=== PATIENT | male | born 2000 | race Caucasian/White ===

== ENCOUNTER 2021-05-03 10:27 | Inpatient (IN) | payer OTHER, SELFPAY ==
[2021-05-03 10:30] VITALS: BMI 21.4
[2021-05-03 10:31] VITALS: BP 144/81; PULSE 64; RESP 16; TEMP 36.7; O2SAT 97
--- NOTE | 2021-05-03 11:00 | PC.NURSE ---
21 y.o male from [facility] in [place] presents with thoughts of SI, and auditory hallucinations that he describes as present all the time. Patient has a plan to hang himself, slit his wrists or get a gun, and states that the voices are repeatedly telling him to kill himself. States that he has some visual hallucinations of a figure standing near him or flashing lights. Patient states that he is taking Lexapro and Prograf. Has a history of liver transplant. Positive for Marijuana. Has large scar to abdomen from liver transplant.
--- NOTE | 2021-05-03 13:01 | PM.NHP ---
Providers/Chief Complaint Admitting Physician: Robles Cuadra MD Chief Complaint: SI/AVH HPI NPU History of Present Illness Orestes Russell is a 21 year old male who has had depression and suicidal ideation for a number of years who presented to the [facility] ED in [place], [place] with complaints of worsening suicidal ideation and a plan of slitting his wrist in the bathtub. He was medically cleared prior to transfer. The [facility] ED note states: Patient presents to ER with SI and AV hallucinations. At time of assessment, patient is calm, oriented, and cooperative. Patient reports current SI, and cites plan to slit his wrists in the bathtub and OD on his medications. Patient states he has auditory hallucinations, and describes them as muffled talking and dogs barking/cats meowing. He denies current auditory hallucinations, but does states he has a history of command hallucinations. Patient cites his major stressors are finances, his job which he states he has a hard time focusing at and cries all day. Patient state he is out only been able to sleep about 3 hours per night. Patient reports having visual hallucinations, and states that he sees people for a few seconds and sees flashing lights. He denies that appear to be responding to any stimuli at this time. UDS was positive for cannabinoids on 05/02/2021. BAL 0.00 on 05/02/2021. Patient is unable to contract for safety at this time. Labs from [facility] on 05/02/2021 showed CBC, CMP and UA all essentially normal. Acetaminophen and salicylate were negative. Urine drug screen is positive for cannabinoids. Covid test was reported to be negative. Two affidavits from [facility] were reviewed as well. The patient says he has been real depressed, since the seventh grade. He has had suicidal ideation for a long time too. He says, my life is collapsing around me. He describes being kicked out of his living situation by a roommate, and his dad constantly needling him to get a real job. Depression and suicidal ideas have been worse over the last week, after having the thought, I should slit my wrists. He had a specific plan to feel his bathtub, take pain pills, and then cut his wrists. He says he has had insomnia, sleeping 3 to 4 hours at night. On the other hand he sleeps often in the daytime. Appetite is okay and energy level is decreased. Motivation is poor. He has been down on himself, but is more hopeful being in the hospital, because maybe things will change. He does say he has auditory hallucinations, which used to be clearly understandable, but now are mumbling. He also sees people standing in a corner, although when he looks they are gone. He denies current command hallucinations, although he has had these in the past. The patient also describes disassociating, disconnecting from himself, and everything looks blurry or foggy. He says for example, that he will not remember this conversation, because he is disconnected right now. He says his boyfriend was the one the pointed out that he is dissociating, and this made sense to him. He feels he has been dissociating since his sophomore year in high school. The collateral information says that the patient has a history of self cutting, but has not done so recently. The patient says he uses alcohol rarely. He smokes marijuana about once every 2 weeks, and smokes cigarettes 1/2 pack/day or more. He has never been in drug rehab or gotten a DUI. This is the patient's first psychiatric hospitalization. He was referred to [facility], and just started on Lexapro 4 days ago. He is waiting to be assigned a therapist. Psychiatric history: As above. Substance use history: As above. Family history: Patient says his father and 2 maternal uncles have all attempted suicide. There are autoimmune diseases that run in his family. Psychosocial history: The patient says he grew up in [place], [place], and graduated from high school in [place], [place]. His parents when he was 10, and he has split his time between his dad's house in [place] and his mother's house in [place]. He works at [employer]. He has a boyfriend he has been dating for 11 months. Legal history: No legal difficulties. 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 He says he is doing well with that. He had his first dose of the [email or web address] Covid vaccine about 2-1/2 weeks ago. He is scheduled to have the second dose next Thursday. Review of Systems General: Reports: 10 or more systems reviewed and unremarkable except in HPI and below Meds NPU Home Medications Medication Instructions Recorded Confirmed Last Taken Type escitalopram oxalate [Lexapro] 10 mg PO DAILY 05/03/21 05/03/21 Unknown History tacrolimus [Prograf] 1.5 mg PO BID 05/03/21 05/03/21 Unknown History Allergies Allergy/AdvReac Type Severity Reaction Status Date / Time No Known Allergies Allergy Verified 05/03/21 10:58 Mental Status Exam MSE Comments: I met with the patient in his room, and he was appropriately groomed and dressed, wearing hospital scrubs. He was calm, cooperative, interactive, and made fair eye contact. Mild psychomotor agitation.. Speech is at a regular rate and rhythm, normal volume, good articulation, not pressured. Alert, oriented to person, place, time, situation. Attention and concentration were intact. Able to spell the word WORLD correctly forwards and backwards. Memory is intact. Remembers 3/3 words immediately and 3/3 at 3 minutes. He knows the names of the past 3 presidents. Mood is depressed and anxious. Affect is pleasant and anxious. Thought process is logical and goal-directed. Thought content: Auditory and visual hallucinations as described above. No delusions noted. No current suicidal ideation here in the hospital, no homicidal ideation. Insight and judgment appear to be fair. Vitals/I&O/Wt Last Vital Signs Temp 98.0 F 05/03/21 10:31 Pulse 64 05/03/21 10:31 Resp 16 05/03/21 10:31 BP 144/81 05/03/21 10:31 Pulse Ox 97 05/03/21 10:31 Weight last 48 hrs Weight 65.771 kg A&P Assessment and plan (1) Major depressive disorder, recurrent, severe with psychotic features: Status: Acute (2) Anxiety disorder, unspecified: Status: Acute Additional A&P Information Orestes Russell is a 21 year old male who has had depression and suicidal ideation for a number of years who presented to the [facility] ED in [place], [place] with complaints of worsening suicidal ideation and a plan of slitting his wrist in the bathtub. He also has issues with dissociation. 1. Continue current medication. He has just started on Lexapro in the past few days. It has not had time to produce an effect yet. We will continue to assess medication status and whether to augment the Lexapro. 2. Continue every 15 minute checks for safety. 3. Encourage individual, group and milieu therapies. 4. Encourage sober living treatment after discharge at the highest level of care to which he is willing to commit. Involuntary Hold Information 96 Hour Hold: 96 Hour Involuntary Admission: No Attestations NPU Medical Necessity Statement*: Psychiatric hospitalization is medically necessary to prevent access to lethal means, to reevaluate medication, and to coordinate a safe discharge. Patient will be in the hospital for over 2 midnights. Likely length of stay is 3 to 5 days. Coding Level of Care Code Acute Firefighter for Jackie Marcial Diagnoses Major depressive disorder, recurrent, severe with psychotic features F33.3 Anxiety disorder, unspecified F41.9
[2021-05-03] MEDS: nicotine 2 mg Gum BUCCAL ×2 (13:27→20:22)
[2021-05-03] MEDS: escitalopram 10 mg Tablet PO (13:27)
[2021-05-03 14:00] VITALS: BP 144/81; PULSE 64; RESP 16; TEMP 36.7; O2SAT 97
[2021-05-03] MEDS: TACROLIMUS 1 MG CAP 2 EACH PO (17:46)
[2021-05-03 20:08] VITALS: BP 128/87; PULSE 68; RESP 18; TEMP 37.5; O2SAT 97
[2021-05-03] MEDS: trazodone 50 mg Tablet PO (21:34)
[2021-05-03] MEDS: hyDROXYzine 25 mg Capsule 50 MG PO (21:34)
--- NOTE | 2021-05-03 21:40 | PC.NURSE ---
Patient requested Trazodone 50 mg for sleep and Vistaril 50mg for anxiety. Both given
[2021-05-04 06:00] VITALS: BP 125/73; PULSE 84; RESP 15; TEMP 36.5; O2SAT 97
[2021-05-04] MEDS: TACROLIMUS 1 MG CAP 2 EACH PO ×2 (06:16→16:34)
[2021-05-04] MEDS: ESCITALOPRAM 10MG 1 EACH PO (08:21)
[2021-05-04 14:00] VITALS: BP 161/80; PULSE 95; RESP 20; TEMP 36.1; O2SAT 96
[2021-05-04] MEDS: nicotine 2 mg Gum BUCCAL ×2 (14:21→16:03)
--- NOTE | 2021-05-04 14:23 | PC.NURSE ---
Patient at nurses station requesting nicotine gum. PRN nicotine gum administered.
--- NOTE | 2021-05-04 15:03 | P.PN_ITS ---
Subjective NPU Subjective: Interval history: The patient reports doing somewhat better today. He describes that his anxiety is reduced because he does not have the same stressors he has at home. For example, he has intense anxiety at work because of his interaction with the public, and he has no expectation of performance here. Therefore his suicidal ideation has decreased. His auditory hallucinations have diminished, and he slept much better last night. I encouraged him to take and as needed hydroxyzine if his anxiety flares up. That would give him some sense of its ability to control anxiety, and he could then use hydroxyzine for anxiety at home. He denies any side effects on the Lexapro, except for 5 or 10 minutes of stomach pain, which did not actually happen today. I talked with him about adding Abilify 2 mg daily for 3 reasons. It can augment the antidepressant effects of Lexapro. It can address the hallucinations which are a part of his depression. And it may decrease emotional intensity, allowing him to stay present and not dissociate. He says he does not mind dissociation, and prefers it to being in touch with painful realities. He did receive the materials I provided him on dissociation and grounding, and has practiced some grounding a little bit since then. Mental Status Exam MSE Comments: I met with the patient in the day room, and he was appropriately groomed and dressed, wearing hospital scrubs. He was calm, cooperative, interactive, and made fair eye contact. Mild psychomotor agitation. Speech is at a regular rate and rhythm, normal volume, good articulation, not pressured. Alert, oriented to person, place, time, situation. Attention and concentration were intact to exam. Memory is adequate for the interview. Mood is improved. Affect is pleasant and less anxious than yesterday. Thought process is logical and goal-directed. Thought content: Auditory and visual hallucinations are improved. No delusions noted. No current suicidal ideation here in the hospital, no homicidal ideation. Insight and judgment appear to be fair. Vitals/I&O/Wt Last Vital Signs Temp 97.7 F 05/04/21 06:00 Pulse 84 05/04/21 06:00 Resp 15 05/04/21 06:00 BP 125/73 05/04/21 06:00 Pulse Ox 97 05/04/21 06:00 Weight last 48 hrs Weight 65.771 kg A&P Assessment and plan (1) Anxiety disorder, unspecified: Status: Acute (2) Major depressive disorder, recurrent, severe with psychotic features: Status: Acute Additional A&P Information Orestes Russell is a 21 year old male who has had depression and suicidal ideation for a number of years who presented to the [facility] ED in [place], [place] with complaints of worsening suicidal ideation and a plan of slitting his wrist in the bathtub. He also has issues with dissociation. 1. Continue current medication. Add Abilify 2 mg daily to augment Lexapro's antidepressant effect, address hallucinations, and decrease intensity of emotions, thus allowing him to stay present more often and dissociate less. 2. Continue every 15 minute checks for safety. 3. Encourage individual, group and milieu therapies. 4. Encourage sober living treatment after discharge at the highest level of care to which he is willing to commit. Involuntary Hold Information 96 Hour Hold: 96 Hour Involuntary Admission: No Attestations NPU Medical Necessity Statement*: Psychiatric hospitalization is medically necessary to prevent access to lethal means, to reevaluate medication, and to coordinate a safe discharge. Likely length of stay is 2 to 4 days. Coding Level of Care Code Acute Senior Private Client Advisor for Jackie Marcial Diagnoses Anxiety disorder, unspecified F41.9 Major depressive disorder, recurrent, severe with psychotic features F33.3
[2021-05-04] MEDS: ARIPiprazole 2 mg Tablet PO (15:15)
--- NOTE | 2021-05-04 16:03 | PC.NURSE ---
Patient at nurses station requesting nicotine gum. Medication administered.
[2021-05-04] MEDS: hyDROXYzine 25 mg Capsule 50 MG PO ×2 (16:34→21:42)
[2021-05-04 20:28] VITALS: BP 139/75; PULSE 82; RESP 18; TEMP 36.8; O2SAT 97
[2021-05-04] MEDS: trazodone 50 mg Tablet PO (21:42)
--- NOTE | 2021-05-04 21:50 | PC.NURSE ---
Patient requested sleep and anxiety meds. Trazodone 50mg PO, Visteril 50mg PO given.
[2021-05-05 06:00] VITALS: BP 120/72; PULSE 86; RESP 17; TEMP 36.8; O2SAT 97
[2021-05-05] MEDS: TACROLIMUS 1 MG CAP 2 EACH PO ×2 (06:44→17:31)
[2021-05-05] MEDS: ARIPiprazole 2 mg Tablet PO (08:35)
[2021-05-05] MEDS: ESCITALOPRAM 10MG 1 EACH PO (08:36)
[2021-05-05] MEDS: nicotine 21 mg Patch 1 PATCH TRANSDERMA (08:36)
[2021-05-05] MEDS: hyDROXYzine 25 mg Capsule 50 MG PO (10:58)
--- NOTE | 2021-05-05 11:02 | PC.NURSE ---
PRN ANXIETY Patient requested medication for anxiety. Given prn Visteral 50 mg po.
[2021-05-05 14:00] VITALS: BP 128/76; PULSE 88; RESP 18; TEMP 36.3; O2SAT 95
--- NOTE | 2021-05-05 14:43 | P.PN_ITS ---
Subjective NPU Subjective: Interval history: The patient says that textures and noises have been causing him to have panicked feelings. He did take hydroxyzine, which he says helped and did not make him sleepy. He has had thoughts of hanging himself over and over, but he says he is numb to it now. He says that being on the unit and having fewer responsibilities has helped him to feel less depressed or hopeless. He has been doing push-ups, sit ups, and walking the halls, and says that the exercises help. He says that his auditory and visual hallucinations have resolved today. He says he has been trying grounding exercises and they helped to clear his head for about 10 minutes, which he has appreciated. The patient says he has had some headache and when anxious, palpitations. He started taking the Abilify yesterday afternoon and had his second dose this morning. He notes no benefit yet. He denies medication side effects. The patient and I talked about his future. He says he would still like to explore disability, because he sees no way that he would be able to work. We talked about his diagnoses, including major depression, social anxiety, and dissociation. Mental Status Exam MSE Comments: I met with the patient in the day room. He was calm, cooperative, interactive, and made fair eye contact. He is somewhat quirky in his mannerisms. Mild psychomotor agitation. Speech is at a regular rate and rhythm, normal volume, good articulation, not pressured. Alert, oriented to person, place, time, situation. Attention and concentration were intact to exam. Memory is adequate for the interview. Mood is improved. Affect is pleasant and somewhat anxious. Thought process is logical and goal-directed. Thought content: Auditory and visual hallucinations are improved, and have not been present since last evening. No delusions noted. He says he has intrusive thoughts of killing himself. He has no homicidal ideation. Insight and judgment appear to be fair. Vitals/I&O/Wt Last Vital Signs Temp 98.2 F 05/05/21 06:00 Pulse 86 05/05/21 06:00 Resp 17 05/05/21 06:00 BP 120/72 05/05/21 06:00 Pulse Ox 97 05/05/21 06:00 Weight last 48 hrs Weight 65.771 kg Weight 65.771 kg A&P Assessment and plan (1) Major depressive disorder, recurrent, severe with psychotic features: Status: Acute (2) Social anxiety disorder: Status: Acute (3) Dissociative disorder or reaction, unspecified: Status: Acute Additional A&P Information Orestes Russell is a 21 year old male who has had depression and suicidal ideation for a number of years who presented to the [facility] ED in [place], [place] with complaints of worsening suicidal ideation and a plan of slitting his wrist in the bathtub. He also has issues with dissociation. 1. Continue current medication. Yesterday we added Abilify 2 mg daily to augment Lexapro's antidepressant effect, address hallucinations, and decrease intensity of emotions, thus allowing him to stay present more often and dissociate less. 2. Continue every 15 minute checks for safety. 3. Encourage individual, group and milieu therapies. 4. Encourage sober living treatment after discharge at the highest level of care to which he is willing to commit. Involuntary Hold Information 96 Hour Hold: 96 Hour Involuntary Admission: No Attestations NPU Medical Necessity Statement*: Psychiatric hospitalization is medically necessary to prevent access to lethal means, to reevaluate medication, and to coordinate a safe discharge. Likely length of stay is 1 to 3 days. Coding Level of Care Code Acute Dessert Cup Machine Feeder for Jackie Marcial Diagnoses Major depressive disorder, recurrent, severe with psychotic features F33.3 Social anxiety disorder F40.10 Dissociative disorder or reaction, unspecified F44.9
[2021-05-05] MEDS: nicotine 2 mg Gum BUCCAL (17:31)
[2021-05-05 21:12] VITALS: BP 160/72; PULSE 78; RESP 14; TEMP 36.6; O2SAT 97
[2021-05-06 06:00] VITALS: BP 134/76; PULSE 77; RESP 15; TEMP 37; O2SAT 97
[2021-05-06] MEDS: TACROLIMUS 1 MG CAP 2 EACH PO (06:59)
[2021-05-06] MEDS: ARIPiprazole 2 mg Tablet PO (08:20)
[2021-05-06] MEDS: ESCITALOPRAM 10MG 1 EACH PO (08:20)
[2021-05-06] MEDS: hyDROXYzine 25 mg Capsule 50 MG PO (09:09)
--- NOTE | 2021-05-06 09:09 | PC.NURSE ---
PRN VISTARIL 50 MG GIVEN PO PER PT C/O STATED ANXIETY. PT HAS PRESSURED SPEECH. BOTH HANDS SHOOK TAKING THE MEDICATION. WILL CONT TO MONITOR
[2021-05-06] MEDS: nicotine 2 mg Gum BUCCAL ×2 (09:53→12:20)
[2021-05-06 10:42] VITALS: BP 134/76; PULSE 77; RESP 15; TEMP 37; O2SAT 97
--- NOTE | 2021-05-06 11:18 | P.DS_ITS ---
Diagnoses at Discharge Discharge Diagnosis (1) Major depressive disorder, recurrent, severe with psychotic features: Status: Acute (2) Social anxiety disorder: Status: Acute (3) Dissociative disorder or reaction, unspecified: Status: Acute Reason for Visit Reason for Visit: SI/AVH Brief History: Orestes Russell is a 21 year old male who has had depression and suicidal ideation for a number of years who presented to the [facility] ED in [place], [place] with complaints of worsening suicidal ideation and a plan of slitting his wrist in the bathtub. He was medically cleared prior to transfer. The [facility] ED note states: Patient presents to ER with SI and AV hallucinations. At time of assessment, patient is calm, oriented, and cooperative. Patient reports current SI, and cites plan to slit his wrists in the bathtub and OD on his medications. Patient states he has auditory hallucinations, and describes them as muffled talking and dogs barking/cats meowing. He denies current auditory hallucinations, but does states he has a history of command hallucinations. Patient cites his major stressors are finances, his job which he states he has a hard time focusing at and cries all day. Patient state he is out only been able to sleep about 3 hours per night. Patient reports having visual hallucinations, and states that he sees people for a few seconds and sees flashing lights. He denies that appear to be responding to any stimuli at this time. UDS was positive for cannabinoids on 05/02/2021. BAL 0.00 on 05/02/2021. Patient is unable to contract for safety at this time. Labs from [facility] on 05/02/2021 showed CBC, CMP and UA all essentially normal. Acetaminophen and salicylate were negative. Urine drug screen is positive for cannabinoids. Covid test was reported to be negative. Two affidavits from [facility] [place] [facility] were reviewed as well. The patient says he has been real depressed, since the seventh grade. He has had suicidal ideation for a long time too. He says, my life is collapsing around me. He describes being kicked out of his living situation by a roommate , and his dad constantly needling him to get a real job. Depression and suicidal ideas have been worse over the last week, after having the thought, I should slit my wrists. He had a specific plan to feel his bathtub, take pain pills, and then cut his wrists. He says he has had insomnia, sleeping 3 to 4 hours at night. On the other hand he sleeps often in the daytime. Appetite is okay and energy level is decreased. Motivation is poor. He has been down on himself, but is more hopeful being in the hospital, because maybe things will change. He does say he has auditory hallucinations, which used to be clearly understandable, but now are mumbling. He also sees people standing in a corner, although when he looks they are gone. He denies current command hallucinations, although he has had these in the past. The patient also describes disassociating, disconnecting from himself, and everything looks blurry or foggy. He says for example, that he will not remember this conversation, because he is disconnected right now. He says his boyfriend was the one the pointed out that he is dissociating, and this made sense to him. He feels he has been dissociating since his sophomore year in high school. The collateral information says that the patient has a history of self cutting, but has not done so recently. The patient says he uses alcohol rarely. He smokes marijuana about once every 2 weeks, and smokes cigarettes 1/2 pack/day or more. He has never been in drug rehab or gotten a DUI. This is the patient's first psychiatric hospitalization. He was referred to [facility], and just started on Lexapro 4 days ago. He is waiting to be assigned a therapist. Psychiatric history: As above. Substance use history: As above. Family history: Patient says his father and 2 maternal uncles have all attempted suicide. There are autoimmune diseases that run in his family. Psychosocial history: The patient says he grew up in [place], [place], and graduated from high school in [place], [place]. His parents when he was 10, and he has split his time between his dad's house in [place] and his mother's house in [place]. He works at [employer]. He has a boyfriend he has been dating for 11 months. Legal history: No legal difficulties. 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 He says he is doing well with that. He had his first dose of the Pfizer Covid vaccine about 2-1/2 weeks ago. He is scheduled to have the second dose next Thursday. Hospital Course Hospital Course Orestes Russell is a 21 year old male who has had depression and suicidal ideation for a number of years who presented to the [facility] ED in [place], [place] with complaints of worsening suicidal ideation and a plan of slitting his wrist in the bathtub. He also had an autoimmune liver disease when he was young, which resulted in getting a liver transplant, now on immune suppressant medicatin to prevent transplant rejection. He was admitted to the neuropsychiatric unit for definitive treatment of these issues. On the unit he slowly acclimated to the individual, group and milieu therapies. There were some mild psychotic symptoms present initially, which resolved when we started Abilify 2 mg daily. He just started on Lexapro 10 mg daily 4 days prior to admission, and this dosage was left the same, because it had not had time to start working yet. He was receptive to treatment team recommendations and showed modest improvement and was able to contract for safety prior to discharge. During the hospitalization, patient had routine laboratory studies which were within normal limits except for few outliers. Additionally there was a general medical evaluation which was also within normal limits and revealed no new acute processes. Discharge Summary: At the time of discharge, the patient was very happy with his improvement. Psychosis and lethality were denied. Mood and anxiety were well managed. Patient endorsed a plan to avoid all drugs of abuse and follow-up with the aftercare recommendations of the treatment team. He will return to live with his parents. Patient was evaluated and deemed to be absent credible lethality, and had achieved the maximum benefit from an inpatient hospitalization, so was discharged. Involuntary Hold Information 96 Hour Hold: 96 Hour Involuntary Admission: No Mental Status Exam MSE Comments: I met with the patient on the unit. He was calm, cooperative, interactive, and made fair eye contact. He is somewhat quirky in his mannerisms. He was excited about going home today. Mild psychomotor agitation. Speech is at a regular rate and rhythm, normal volume, good articulation, not pressured. Alert, oriented to person, place, time, situation. Attention and concentration were intact to exam. Memory is adequate for the interview. Mood is improved. Affect is pleasant and somewhat anxious. Thought process is logical and goal-directed. Thought content: Auditory and visual hallucinations have resolved. No delusions noted. He has had no more intrusive thoughts of killing himself and no homicidal ideation. Insight and judgment appear to be fair. Discharge Data Vitals: Last Vital Signs Temp 98.6 F 05/06/21 10:42 Pulse 77 05/06/21 10:42 Resp 15 05/06/21 10:42 BP 134/76 05/06/21 10:42 Pulse Ox 97 05/06/21 10:42 Discharge Plan Discharge Patient Disposition: Home Condition: Stable Prescriptions: New aripiprazole 2 mg Tablet 2 mg PO DAILY 30 Days Qty: 30 RF: 0 Continued Prograf 1 mg capsule 1.5 mg PO BID RF: 0 Lexapro 10 mg tablet 10 mg PO DAILY 30 Days Qty: 30 RF: 0 Discharge Orders: Discharge Order (Routine); Ordered 05/06/21 Ordered By: Robles Cuadra Discharge Diet: Usual diet Discharge Activity: Resume usual activity Patient Instructions: Aripiprazole (By mouth), Opioid Safety Discharge Attestations NPU Time Spent in Discharge Care*: less than 30 min Specific Discharge Activities: Specific discharge activities: educating patient, discussing with assistant case manager/social workers/dc planners, documenting/other paperwork and evaluating patient/reviewing data Status at Discharge: Cognitive status at discharge: cognitively intact , Behavioral status at discharge: cooperative , Functional status at discharge: independent ambulation Overall status at discharge: patient is back to baseline Coding Level of Care Code Acute Chg DC note Diagnoses Major depressive disorder, recurrent, severe with psychotic features F33.3 Social anxiety disorder F40.10 Dissociative disorder or reaction, unspecified F44.9
--- NOTE | 2021-05-06 14:29 | NPU.GN ---
[facility] Group Topic: Coping skills for stress General Mood of Group: Orestes participated well in group. He was very anxious and was able to use his coping skills that Dr. Cuadra provided him with Sensory Coping Skills He was able to also show the group his coping skills and inform them how to do the coping skills
== END 2021-05-06 14:46 | disposition home or self-care (01) | DRG 885 ==
PROVIDERS: Admitting Provider Psychiatry & Neurology Child & Adolescent Psychiatry; Visit Provider Psychiatry & Neurology Child & Adolescent Psychiatry
DX: F33.3 Major depressive disorder, recurrent, severe with psychotic symptoms (principal); R45.851 Suicidal ideations; Z94.4 Liver transplant status; F41.9 Anxiety disorder, unspecified; F40.10 Social phobia, unspecified; F44.9 Dissociative and conversion disorder, unspecified; F17.210 Nicotine dependence, cigarettes, uncomplicated; F12.90 Cannabis use, unspecified, uncomplicated; Z81.8 Family history of other mental and behavioral disorders; Z79.899 Other long term (current) drug therapy; Z87.39 Personal history of other diseases of the musculoskeletal system and connective tissue